=== PATIENT | male | born 1950 | race Caucasian/White ===

== ENCOUNTER 2022-02-21 10:06 | Outpatient (RCR) | payer MEDICARE, BC ==
[~2022-02-21 10:06] MED LIST: LIDOCAINE VISC 2% SOLN 15 ML UDC ONE
== END 2022-02-22 ==
LOC: WCC 10:06
PROVIDERS: ATTEND Family Medicine Adult Medicine
DX: E10.628 Type 1 diabetes mellitus with other skin complications (principal); S91.309A Unspecified open wound, unspecified foot, initial encounter; I79.8 Other disorders of arteries, arterioles and capillaries in diseases classified elsewhere; I87.2 Venous insufficiency (chronic) (peripheral); R60.0 Localized edema; N18.9 Chronic kidney disease, unspecified; I10 Essential (primary) hypertension; E78.5 Hyperlipidemia, unspecified; E03.9 Hypothyroidism, unspecified; G99.0 Autonomic neuropathy in diseases classified elsewhere; W10.8XXA Fall (on) (from) other stairs and steps, initial encounter

== ENCOUNTER 2022-03-21 10:56 | Outpatient (RCR) | payer MEDICARE, BC | END 2022-03-25 | LOC: WCC 10:56 | PROVIDERS: ATTEND Family Medicine Adult Medicine | DX: E10.628 Type 1 diabetes mellitus with other skin complications (principal); I79.8 Other disorders of arteries, arterioles and capillaries in diseases classified elsewhere; S91.309A Unspecified open wound, unspecified foot, initial encounter; I87.2 Venous insufficiency (chronic) (peripheral); R60.0 Localized edema; N18.9 Chronic kidney disease, unspecified; I10 Essential (primary) hypertension; E78.5 Hyperlipidemia, unspecified; E03.9 Hypothyroidism, unspecified; F40.240 Claustrophobia; G99.0 Autonomic neuropathy in diseases classified elsewhere; W10.8XXA Fall (on) (from) other stairs and steps, initial encounter ==

== ENCOUNTER 2022-04-12 15:34 | Outpatient (RCR) | payer MEDICARE, BC | END 2022-04-24 | LOC: WCC 15:34 | PROVIDERS: ATTEND Family Medicine Adult Medicine | DX: E10.628 Type 1 diabetes mellitus with other skin complications (principal); L97.411 Non-pressure chronic ulcer of right heel and midfoot limited to breakdown of skin; I79.8 Other disorders of arteries, arterioles and capillaries in diseases classified elsewhere; I87.2 Venous insufficiency (chronic) (peripheral); R60.0 Localized edema; N18.9 Chronic kidney disease, unspecified; I10 Essential (primary) hypertension; E78.5 Hyperlipidemia, unspecified; E03.9 Hypothyroidism, unspecified; F40.240 Claustrophobia; G99.0 Autonomic neuropathy in diseases classified elsewhere; W10.8XXA Fall (on) (from) other stairs and steps, initial encounter ==